=== PATIENT | female | born 1975 | race Caucasian/White ===

== ENCOUNTER 2017-02-22 14:30 | Inpatient (IN) ==
[2017-02-22] MEDS ORDERED: ONDANSETRON 4 MG/2 ML VIAL IV STA (15:27)
[2017-02-22] MEDS ORDERED: HYDROmorphone 2 MG/1 ML VIAL IV STA (15:27)
[2017-02-22] MEDS ORDERED: SODIUM CHLORIDE 0.9% 1,000 ML IV STA (15:28)
--- NOTE | 2017-02-22 15:29 | Emergency Department Note ---
Arrival - Arrival Chief Complaint: Abdominal / Flank Pain Stated Complaint: severe stomach pain, gallbladder attack, Dr not in ED Nursing Triage Note: Pt c/o abd pain since last night goes through to her back since last night with nausea and vomiting. Pt is scheduled for Gallbladder surgery on Monday Dr Baires. Mode of Arrival: Wheelchair Limitations: No Limitations Source: Patient, Old Records Reviewed, RN Notes Reviewed Time Seen by Provider: 02/22/17 15:00 - History of Present Illness HPI Narrative: - History of Present Illness 23-year-old white female presents to ED with: MD Complaint: abdominal pain, nausea, vomiting, Onset (ago): 1 day Fever: yes, temp max; temp in triage 100.1. Patient is scheduled for cholecystectomy on Monday by Dr. Baires. States that she is having a" gallbladder attack". She called Dr. Baires's office, he was not in the office today. They instructed her to come to the ER if she needed to. PCP: Dr. Santos, surgeon is Dr. Baires PMHx: none Date of Last Menstrual Period: aprox 1 month ago Allergies/Adverse Reactions: Allergies Allergy/AdvReac Type Severity Reaction Status Date / Time No Known Allergies Allergy Unverified 09/16/16 06:41 Home Medications: Home Medications Medication Instructions Recorded Confirmed Type oxyCODONE/ACETAMINOPHEN 5-325 2 tablet PO Q6H PRN #30 tablet 09/16/16 02/22/17 Rx [Percocet 5-325] Review of System - Review of System 12 point system: reviewed and no additional remarkable complaints except as stated - Review of System Constitutional: Present: fever Gastrointestinal: Present: as per HPI, abdominal pain, nausea, vomiting ( Started after Percocet she took at 3 AM, has resolved) Medical,Surgical,& Family Hx - Medical History Medical History: noncontributory - Surgical History Reproductive Surgeries: Surgical HX of;: Section Patient denies;: Hysterectomy, Tubal Ligation - Family History Family History: Reports;: Family Cancer (pgf pancreatic cancer) Denies;: Family Anesthesia Reaction, Family Diabetes, Family Heart Disease, Family Hypertension, Family Psychiatric Problems, Family Stroke - Social History Smoking Status: Never smoker Exam Physical Examination: - General General appearance: alert, in mild distress - HEENT Present: atraumatic, normocephalic, normal inspection, PERRL, EOMI, mucous membranes moist - Neck Neck exam: Present: normal inspection, full ROM - Respiratory Respiratory exam: Present: normal lung sounds bilaterally - Cardiovascular Cardiovascular exam: Present: regular rate, normal rhythm, normal heart sounds - Abdominal Exam Abdominal exam: Present: soft, tenderness: Yes; RUQ, periumbilical, mild to moderate, normal bowel sounds. Absent: distention, guarding, trauma, - Extremities Exam Extremities exam: Present: normal inspection, full ROM. Absent: pedal edema, joint swelling, calf tenderness - Back Exam Back exam: Present: normal inspection, no CVA tenderness, right lower back tenderness to palpation - Neurological Exam Neurological exam: Present: alert, oriented X3, no neuorosensory deficits - Psychiatric Psychiatric exam: Present: normal affect, normal mood - Skin Skin exam: Present: warm, dry, intact Vital Signs: Vital Signs Temperature 98.0 F 02/22/17 23:25 Pulse Rate 76 02/22/17 23:25 Respiratory Rate 18 02/22/17 23:25 Blood Pressure 106/69 02/22/17 23:25 O2 Sat by Pulse Oximetry 96 02/22/17 23:25 Course - Consultations Consultation #1: Dr. Baires called me to check on patient. States he is willing to put patient in the hospital to do surgery in the a.m. Instructed me to call them back if the patient needs to be admitted after her labs and pain medicines are given. Time: 15:30 Time: 16:40 (Dr. Baires notified of pt status and elevated WBC. He will admit patient and schedule surgery for AM.) Results - Labs CBC & BMP: 02/22/17 15:34 02/22/17 15:34 Lab Results: I have reviewed the patients labs Labs: Laboratory Tests 02/22/17 19:15 Urine Color Yellow Urine Appearance Slightly hazy Urine pH 5.0 Ur Specific [place] 1.023 Urine Protein 100 Urine Glucose (UA) Negative Urine Ketones Negative Urine Blood Moderate Urine Nitrate Negative Urine Bilirubin Negative Urine Urobilinogen < 2.0 H Urine Leukocytes Negative Urine RBC 3 Urine WBC 12 Ur Squamous Epith Cells Occasional Urine Bacteria Occasional Hyaline Casts 1 Urine Mucus Moderate Ur Culture Indicated? Results to follow Urine Test Negative Disposition Clinical Impression: Cholecystectomy planned Disposition: Still a Patient Condition: Stable Time of Disposition: 16:55
[2017-02-22] MEDS ORDERED: ONDANSETRON 4 MG/2 ML VIAL ONE (15:30)
[2017-02-22] MEDS ORDERED: HYDROmorphone 2 MG/1 ML VIAL ONE (15:30)
[2017-02-22 15:56] LABS: Basophils % 0.2 % (0.0-0.8); Eosinophils % 0.1 % (0.00-10.9); Hematocrit 35.4 VOL% (35.7-47.0); Immature Granulocytes % 0.3 %; Immature Granulocytes Absolute 0.04 #; Lymphocytes # 2.2 10*3/uL (1.4-4.0); Lymphocytes % 16.4 % (21.3-54.2); Mean Corpuscular HGB Conc 33.9 GM/DL (32-36); Mean Corpuscular Hemoglobin 31 PG (27-34); Mean Corpuscular Volume 90.8 FL (87-102); Mean Platelet Volume 11.3 FL (9.6-12.0); Monocytes # 0.8 10*3/uL (0.11-0.8); Monocytes % 5.8 % (1.7-12.7); Neutrophils # 10.2 10*3/uL (1.4-7.4); Neutrophils % 77.2 % (38.7-73.9); Platelet Count 370 T/CUMM (130-400); Red Cell Distribution Width 14.1 % (9.3-17.3); White Blood Count 13.2 T/CUMM (4-12)
[2017-02-22 16:17] LABS: Alanine Aminotransferase 22 U/L (13-56); Albumin 3.4 G/DL (3.4-5.0); Alkaline Phosphatase 60 U/L (45-117); Aspartate Amino Transferase 16 U/L (0-37); Bilirubin,Total < 0.39 MG/DL (0.2-1.0); Blood Urea Nitrogen 7 MG/DL (7-18); Calcium 9.4 MG/DL (8.5-10.1); Glucose 103 MG/DL (74-106); Osmolality,Calculated 274.5 MOS/KG (273-304); Potassium 3.2 MMOL/L (3.5-5.1); Sodium 139 MMOL/L (136-145); Total Protein 7.7 G/DL (6.4-8.3)
[2017-02-22] MEDS ORDERED: ONDANSETRON 4 MG/2 ML VIAL IV PRN (16:46)
[2017-02-22] MEDS ORDERED: HYDROmorphone 2 MG/1 ML VIAL IV PRN (16:46)
--- NOTE | 2017-02-22 18:32 | XRay Report ---
XR chest 2V Indication: Shortness of breath. Chest 2 views: No comparison. The heart size and mediastinal contour are normal. The lungs and pleural spaces are clear. Bones are unremarkable. Impression: Negative chest. PROCEDURE INTERPRETED AT [facility], [place] DEPARTMENT OF RADIOLOGY Final Report Signed by: Garret Barnes M.D.
[2017-02-22] MEDS: PANTOPRAZOLE 40 MG VIAL IV SCH (19:24)
[2017-02-22] MEDS: PIPERACILLIN/TAZOBACTAM 3,375 MG in SODIUM CHLORIDE 0.9% 100 ML IV SCH (19:28)
[2017-02-22 19:52] LABS: Apearance,Urine Slightly Hazy (Clear); Bacteria,Urine Occasional /HPF (Few); Bilirubin,Urine Negative (Negative); Blood, Urine Moderate mg/dL (Negative); Glucose,Urine (UA) Negative (Negative); Hyaline Casts,Urine 1 /LPF (0-3); Ketones,Urine Negative (Negative); Mucus,Urine Moderate /LPF (Occasional); Nitrite,Urine Negative (Negative); Protein,Urine 100 MG/DL; RBC,Urine 3 /HPF (0-4); Squamous Epithelial Cell,Urine Occasional /HPF (0-10); Urine Color Yellow (Yellow); Urine Specific Gravity 1.023 (1.001-1.035); Urine Urobilinogen < 2.0 EU/DL (0.2-1.0); WBC,Urine 12 /HPF (0-6)
[2017-02-22] MEDS: HYDROmorphone 2 MG/1 ML VIAL IV PRN (22:14)
[2017-02-23] MEDS: PIPERACILLIN/TAZOBACTAM 3,375 MG in SODIUM CHLORIDE 0.9% 100 ML IV SCH ×2 (01:04→09:35)
[2017-02-23] MEDS: DEXTROSE 5% NACL 0.45% 1,000 ML IV SCH ×2 (01:05→14:11)
[2017-02-23] MEDS: HYDROmorphone 2 MG/1 ML VIAL IV PRN ×2 (02:03→06:03)
--- NOTE | 2017-02-23 07:09 | General Surg History&Physical ---
Assessment and Plan (1) Cholecystitis Status: Acute Assessment and plan: This patient has cholecystitis. She has been admitted for pain medication and IV fluids as well as anti-medics and I recommend cholecystectomy today. There are no indications for a selective cholangiogram. Current Visit: Yes History of Present Illness Chief complaint: Abdominal pain History of present illness: Ms. Ramirze is a 41 year old female with symptomatic cholelithiasis who was initially scheduled for elective cholecystectomy came into the ER last night with acute onset of worsening symptoms consistent with cholecystitis. She had a white blood cell count of 13,000. Her liver function tests are normal. Home Medications Medication Instructions Recorded Confirmed Type oxyCODONE/ACETAMINOPHEN 5-325 2 tablet PO Q6H PRN #30 tablet 09/16/16 02/22/17 Rx [Percocet 5-325] Allergies Allergy/AdvReac Type Severity Reaction Status Date / Time No Known Allergies Allergy Unverified 09/16/16 06:41 Medical,Surgical,& Family Hx - Surgical History Reproductive Surgeries: Surgical HX of;: Section Patient denies;: Hysterectomy, Tubal Ligation - Family History Family History: Reports;: Family Cancer (pgf pancreatic cancer) Denies;: Family Anesthesia Reaction, Family Diabetes, Family Heart Disease, Family Hypertension, Family Psychiatric Problems, Family Stroke - Social History Smoking Status: Never smoker Frequency of Alcohol Use: Occasionally Exam - Constitutional Vitals: Period Temp Pulse Resp BP Sys/Espinosa Pulse Ox Last 24 Hr 98.0 F-100.1 F 56-86 16-20 106-127/64-93 96-100 General appearance: no acute distress, over weight - Head Head exam: Present: normal inspection, normocephalic - Eye Eye exam: Present: EOMI Pupils: Present: JEREMY - ENT ENT exam: Present: normal exam Mouth exam: Present: normal external inspection, normal voice - Neck Neck exam: Present: normal inspection, trachea midline - Respiratory Respiratory exam: Present: clear to auscultation bilaterally. Absent: accessory muscle use, chest wall tenderness - Cardiovascular Cardiovascular exam: Present: RRR. Absent: systolic murmur, tachycardia - GI/Abdominal GI/Abdominal exam: Present: Salcedo's sign, tenderness, soft. Absent: distended , guarding, rebound - Extremities Exam Extremities exam: Present: normal inspection, normal capillary refill - Back Exam Back exam: Present: normal inspection - Neurological Exam Neurological exam: Present: alert, oriented X3 Speech: Present: normal - Skin Skin exam: Present: normal color, warm - Constitutional Constitutional: Present: as per HPI - EENT Nose, mouth and throat: Present: as per HPI - Cardiovascular Cardiovascular: Present: as per HPI - Respiratory Respiratory: Present: as per HPI - Gastrointestinal Gastrointestinal: Present: as per HPI - Genitourinary Genitourinary: Present: as per HPI - Musculoskeletal Musculoskeletal: Present: as per HPI - Neurological Neurological: Present: as per HPI - Endocrine Endocrine: Present: as per HPI Hematologic/Lymphatic: Present: as per HPI Results - Labs CBC & BMP: 02/22/17 15:34 02/22/17 15:34 - Diagnostic Findings Procedure: Chest x-ray: report reviewed by me (normal)
[2017-02-23] MEDS ORDERED: HYDROmorphone 2 MG/1 ML VIAL IV PRN (07:13)
[2017-02-23 07:33] LABS: Basophils % 0.2 % (0.0-0.8); Eosinophils % 0.2 % (0.00-10.9); Hemoglobin 10.8 GM/DL (12.0-16.0); Immature Granulocytes % 0.7 %; Lymphocytes # 1.5 10*3/uL (1.4-4.0); Lymphocytes % 9.9 % (21.3-54.2); Mean Corpuscular HGB Conc 32.7 GM/DL (32-36); Mean Corpuscular Hemoglobin 31 PG (27-34); Mean Corpuscular Volume 94.8 FL (87-102); Mean Platelet Volume 11.1 FL (9.6-12.0); Monocytes # 0.9 10*3/uL (0.11-0.8); Monocytes % 6.2 % (1.7-12.7); Neutrophils # 12.4 10*3/uL (1.4-7.4); Neutrophils % 82.8 % (38.7-73.9); Platelet Count 314 T/CUMM (130-400); Red Blood Count 3.48 MC/CUMM (3.8-5.5); Red Cell Distribution Width 14.4 % (9.3-17.3)
[2017-02-23] MEDS ORDERED: FAMOTIDINE 20 MG TABLET PO ONE (07:46)
[2017-02-23] MEDS ORDERED: DIAZEPAM 5 MG TABLET PO ONE (07:46)
[2017-02-23] MEDS ORDERED: LACTATED RINGERS 1,000 ML IV SCH (08:00)
[2017-02-23] MEDS: PANTOPRAZOLE 40 MG VIAL IV SCH (09:32)
[2017-02-23] MEDS ORDERED: TISSUE ADHESIVE 1 EACH APPLICATOR TOP ONE (10:31)
[2017-02-23] MEDS ORDERED: BUPIVACAINE MPF 0.25% /EPI 30 ML VIAL ONE (10:31)
[2017-02-23] MEDS ORDERED: LIDOCAINE 1%/EPI INJ 20 ML VIAL ONE (10:32)
--- NOTE | 2017-02-23 13:49 | Operative Note ---
Date of procedure: 02/23/17 Pre-op diagnosis: acute cholecystitis Post-op diagnosis: same Procedure: Preoperative diagnosis Acute cholecystitis Postoperative diagnosis Same Procedures performed Laparoscopic cholecystectomy Findings Acute and chronic cholecystitis was seen. The critical view of safety was obtained prior to placing clips on the cystic duct and cystic artery. Complications None apparent Specimen Gallbladder Anesthesia GETA Blood loss 5 mL Indications Acute cholecystitis. 2 the risks, benefits, and alternatives of the operation were discussed with the patient in detail, and the expected outcomes were reviewed. In particular, the risk of bowel injury, liver injury, bile duct leak and bile duct injury, as well as pancreatitis and retained or drop stones were discussed in detail. All the patient's questions were answered. She like to proceed with the operation. Description of procedure The patient was taken to the operating room and transferred to the operating table in the supine position. Pressure points were padded and SCDs were placed to bilateral lower extremities. General endotracheal anesthesia was administered. The abdomen was prepped chlorhexidine and draped sterilely. Preoperative antibiotics were administered, a timeout was performed. The abdomen was entered in a supraumbilical location of the Veress needle. The skin incision was made in the supraumbilical location with a 11 blade scalpel after local anesthetic was administered. Umbilical stalk was grasped with a penetrating towel clip. A Veress needle was used to enter the peritoneal cavity confirmed by double click technique. Aspiration was negative. Saline drop test confirmed intraperitoneal location. The abdomen was insufflated to 15 mmHg with an initial insufflation pressure of 2 mmHg. The Veress needle was removed and a 5 mm trocar was placed blindly. The towel clip was removed. Diagnostic laparoscopy was performed. There is no evidence of Veress needle or trocar injury. The patient was placed in reverse Trendelenburg and left side rolled down position. Under direct visualization, and after local anesthetic was administered, an 11 mm midepigastric trocar and 2 right subcostal 5 mm trochars were placed. The gallbladder was grasped at the fundus and infundibulum. The cystic plate peritoneum was dissected into the critical view of safety was obtained. The cystic duct and cystic artery were clipped twice initially and once laterally and divided laparoscopically with scissors between clips. Gallbladder was removed from the gallbladder fossa using hook electrocautery. The gallbladder was placed in a Endo Catch retrieval bag through the 11 mm trocar and removed through the trocar with some extension of the fascial incision required to remove the large stone within the gallbladder. The gallbladder fossa was suction irrigated until the effluent was clear. The fascial defect at the midepigastric trocar site was closed with a figure-of- eight 0 Vicryl suture. There was no residual fascial defect. The CO2 was released from the abdomen and the trochars were removed. The skin incisions were closed with 4-0 Monocryl subcuticular suture and sterile skin glue. The patient was awakened from anesthesia and transferred to recovery. Postoperative plan Advance diet as tolerated Pain control Anesthesia: MANA, local Surgeon / Physician: Evens Baires Estimated blood loss: other (50 mL) Specimens: other (gallbladder) Condition: stable Disposition: PACU Results - Labs CBC & BMP: 02/23/17 07:18 02/22/17 15:34 Discharge Plan - Discharge Data Disposition: Disch To Home/Self Care Condition at Discharge: Stable Discharge Diet: advance to your usual diet Activity: no lifting Hygiene: may shower Driving: other (Do not drive or operate heavy machinery for at least 24 hours and after you are off of narcotic pain medications.) Contact your physician if you experience:: fever over 101, Difficulty voiding, Redness or swelling, Nausea/Vomiting, Shortness of breath, Bleeding, pain uncontrolled by pain medications Wound / Dressing Care Instructions: It is okay to shower. Do not scrub the incision aggressively or submerge it under water. - Discharge Medications New Nitrofurantoin Macro/Clarion [Macrobid] 100 mg PO Q12H #14 capsule Oxycodone HCl/Acetaminophen [Percocet 7.5-325 mg Tablet] 1 each PO Q6H PRN # 30 tablet PRN Reason: Abdominal Pain Discontinued oxyCODONE/ACETAMINOPHEN 5-325 [Percocet 5-325] 2 tablet PO Q6H PRN #30 tablet PRN Reason: Pain Moderate (4-7) - Follow Up or Referral Follow Up: Evens Baires MD [Physician] - 2 Weeks - Forms/Instructions
[2017-02-23] MEDS ORDERED: PROPOFOL 200 MG/20 ML VIAL IV ONE (13:50)
[2017-02-23] MEDS ORDERED: MIDAZOLAM 2 MG/2 ML VIAL ONE (13:51)
[2017-02-23] MEDS ORDERED: SEVOFLURANE 1 UNIT/15 MINUTE INH ONE (13:51)
[2017-02-23] MEDS ORDERED: LIDOCAINE 2% TOP JELLY 5 ML TUBE TOP ONE (13:51)
[2017-02-23] MEDS ORDERED: ONDANSETRON 4 MG/2 ML VIAL ONE (13:52)
[2017-02-23] MEDS ORDERED: ACETAMINOPHEN 1,000 MG/100 ML VIAL IV ONE (13:52)
[2017-02-23] MEDS ORDERED: NEOSTIGMINE 10 MG/10 ML VIAL ONE (13:52)
[2017-02-23] MEDS ORDERED: KETOROLAC 30 MG/1 ML VIAL ONE (13:52)
[2017-02-23] MEDS ORDERED: DEXAMETHASONE 4 MG/1 ML VIAL ONE (13:52)
[2017-02-23] MEDS ORDERED: GLYCOPYRROLATE 0.4 MG/2 ML VIAL ONE (13:52)
[2017-02-23] MEDS ORDERED: ROCURONIUM 100 MG/10 ML VIAL IV ONE (13:53)
[2017-02-23] MEDS: NITROFURANTOIN MACRO/MONO 100 MG CAPSULE PO SCH (15:50)
--- NOTE | 2017-02-23 16:19 | Anesthesia Post-Op ---
Anesthesia Post OP - Post Ansesthetic Evaluation Patient seen in post op: Yes Resp: within normal limits CV: within normal limits Mental: within normal limits Temp: within normal limits [id number]: within normal limits Nausea and Vomiting: within normal limits Pain: within normal limits
--- NOTE | 2017-02-23 20:25 | Event Note ---
General Surgery Progress Note Chief complaint This patient is a 41-year-old woman admitted with acute cholecystitis treated with laparoscopic cholecystectomy on 02/23/2017 Interval history The patient has a low blood pressures immediately postop but these are recovered and she is currently resting well. She tolerated her diet today and is gotten up to use the restroom several times. Her urine is clear. No nausea or vomiting. Pain is well controlled. Physical exam Afebrile with normal vital signs Abdominal exam with expected postoperative tenderness Labs None new Imaging None new Assessment and plan Continue diet as tolerated Repeat labs in the morning Hep-Lock IV fluid
[2017-02-24] MEDS: NITROFURANTOIN MACRO/MONO 100 MG CAPSULE PO SCH (02:11)
[2017-02-24 06:55] LABS: Basophils % 0.2 % (0.0-0.8); Eosinophils % 0.2 % (0.00-10.9); Hematocrit 30.8 VOL% (35.7-47.0); Hemoglobin 10.2 GM/DL (12.0-16.0); Immature Granulocytes % 0.5 %; Immature Granulocytes Absolute 0.06 #; Lymphocytes # 1.7 10*3/uL (1.4-4.0); Lymphocytes % 13.8 % (21.3-54.2); Mean Corpuscular HGB Conc 33.1 GM/DL (32-36); Mean Corpuscular Hemoglobin 31 PG (27-34); Mean Corpuscular Volume 93.1 FL (87-102); Monocytes # 0.9 10*3/uL (0.11-0.8); Monocytes % 7.2 % (1.7-12.7); NRBC # 0.03 10*3/uL; Neutrophils # 9.4 10*3/uL (1.4-7.4); Neutrophils % 78.1 % (38.7-73.9); Platelet Count 261 T/CUMM (130-400); Red Blood Count 3.31 MC/CUMM (3.8-5.5); Red Cell Distribution Width 14.4 % (9.3-17.3)
[2017-02-24 07:04] VITALS: BP 108/59
--- NOTE | 2017-02-24 07:21 | Event Note ---
General Surgery Progress Note Chief complaint This patient is a 41-year-old woman admitted with acute cholecystitis treated with laparoscopic cholecystectomy on 02/23/2017 Interval history Patient is doing well this morning. She is tolerating her diet. Pain is well controlled. She has urinated several times overnight. Physical exam Afebrile with normal vital signs Abdominal exam with expected postoperative tenderness. Incisions are clean and dry Labs Hemoglobin stable Imaging None new Assessment and plan Discharge home this morning
[2017-02-24] MEDS: DEXTROSE 5% NACL 0.45% 1,000 ML IV SCH (07:37)
[2017-02-24] MEDS: PANTOPRAZOLE 40 MG VIAL IV SCH (08:45)
--- NOTE | 2017-02-24 12:25 | Pathology Report from [facility] ---
[facility] [place] ACCESSION # : [id number] PATIENT NAME : Fang Ramirez ORDERING DR : Evens Baires MD CLINICAL HX: Cholecystitis POST-OP DX: Same SPECIMEN INFO: Gallbladder GROSS DESCRIPTION: The specimen is received in formalin labeled with the patients name and consists of an intact gallbladder measuring 11.5 x 4.6 cm. The serosa is hyperemic, smooth keenan. The wall averages 0.3 cm in thickness. The mucosa is granular, erythematous and focally ulcerated. Within the lumen there is an ovoid 3.4 x 2.0 cm diffusely bosselated yellow-brown stone. Road [employer] sections submitted in one cassette. DIAGNOSIS FOR FANG RAMIREZ: GALLBLADDER: Acute and chronic cholecystitis. Cholelithiasis. No evidence of malignancy. COLLECTED DATE: 02/23/2017 [facility] [place] REPORT DATE: 02/24/2017 ELECTRONICALLY SIGNED BY: Christi Nelson III, M.D. 02/24/2017 - 9:30:09 LEANDRO
== END 2017-02-24 10:26 | disposition home or self-care (01) | DRG 419 ==
LOC: N.ED 14:30 → N.EDINP 16:46 → N.3E 17:46
PROVIDERS: ADMIT Surgery; ATTEND Surgery
PROC: LAPCHOL (2017-02-23 12:05)